=== PATIENT | female | born 1970 | race African-American/Black ===

== ENCOUNTER 2022-06-05 14:34 | Emergency (ER) | payer MEDICAID ==
[~2022-06-05] VITALS: Ht 167.6 cm; Wt 64.0 kg
[2022-06-05 14:36] VITALS: BP 146/88
== END 2022-06-05 15:55 | disposition left against medical advice (07) ==
LOC: ER 14:34
DX: Z53.21 Procedure and treatment not carried out due to patient leaving prior to being seen by health care provider (principal); R56.9 Unspecified convulsions